=== PATIENT | female | born 1985 ===

== ENCOUNTER 2016-10-26 09:12 | Day surgery (SDC) | payer BC ==
[2016-10-23 12:13] VITALS: BMI 31.2
[2016-10-26] MEDS ORDERED: Lidocaine 1% Inj (20ml) ONE (10:13)
[2016-10-26] MEDS ORDERED: Bupivacaine HCl 0.25% PF (10 ml) Inj ONE (10:13)
[2016-10-26] MEDS ORDERED: ceFAZolin IV 1 gm in Dextrose 50 ML IVPB ONE (10:13)
[2016-10-26] MEDS ORDERED: Midazolam 2 MG/2 ML VIAL ONE (10:15)
[2016-10-26] MEDS ORDERED: Propofol 10 mg/ml Inj (20 ML) ONE (10:15)
[2016-10-26] MEDS ORDERED: HYDROmorphone 0.5 mg/0.5 ml ISec IVP PRN (10:59)
[2016-10-26] MEDS ORDERED: Oxycodone/Acetaminophen 5/325 mg Tab PO PRN (11:00)
[2016-10-26] MEDS ORDERED: Lactated Ringer's 1,000 ML IV SCH (11:00)
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
[2016-10-26 12:16] VITALS: RESP 16
[2016-10-26 12:32] VITALS: BP 109/68; PULSE 85; TEMP 97.6; O2SAT 98
== END 2016-10-26 12:50 | disposition home or self-care (01) ==
LOC: C.SDS 09:12
PROVIDERS: ATTEND Surgery
DX: D17.24 Benign lipomatous neoplasm of skin and subcutaneous tissue of left leg (principal); Z87.828 Personal history of other (healed) physical injury and trauma
CPT/HCPCS: 11406; 12032; 88304; J0690; J1100; J2250; J2405; J2704; J3010